=== PATIENT | female | born 1975 | race Caucasian/White ===

== ENCOUNTER → 2018-06-19 13:39 | Outpatient (CLI) | payer OTHER, SELFPAY | PROVIDERS: Visit Provider Physician Assistant | DX: L02.91 Cutaneous abscess, unspecified (principal) | CPT/HCPCS: 87070; 87075; 87205 ==

== ENCOUNTER 2024-07-12 14:21 | Emergency (ER) | payer OTHER, SELFPAY ==
[2024-07-12 14:28] VITALS: BP 147/91; PULSE 97; RESP 17; TEMP 36.3; O2SAT 96; BMI 46.8
--- NOTE | 2024-07-12 14:44 | ED_ITS ---
HPI - Wound/Laceration <Jaelyn Guerrero PA-C - Last Filed: 07/12/24 19:14> General Chief Complaint: Wound/Laceration Stated Complaint: abcess in vaginal area Time Seen by Provider: 07/12/24 14:41 Source: patient Mode of arrival: Ambulatory History of Present Illness HPI narrative: Ms. Turner is a pleasant 48-year-old female with a past medical history of insulin-dependent type 2 diabetes, PCOS who presents to the emergency department for a skin abscess in her right inguinal fold x8 days. Patient reports she first noticed this ?cyst? in the crease between her vagina and thigh 8 days ago but reports it may have been there for at least 3 weeks. States that this started spontaneously draining today and it is very foul smelling. States she experienced something similar in her left thigh crease about 3 years ago and on her shoulder blade as well. She denies fevers, chills, nausea, vomiting, abdominal pain, dysuria, abnormal vaginal discharge or bleeding. Reports that she checks her blood glucose twice daily and that it was elevated in the 300s this morning because she ate late last night but that it is normally in the 200s. Related Data Home Medications Medication Instructions Recorded Confirmed alpha lipoic acid 200 mg capsule mg PO 06/19/18 06/19/18 arginine (L-arginine) 500 mg mg PO 06/19/18 06/19/18 capsule cinnamon bark 500 mg capsule 1,000 mg PO DAILY 06/19/18 06/19/18 (Cinnamon) coenzyme Q10 100 mg capsule 100 mg PO DAILY 06/19/18 06/19/18 glimepiride 4 mg tablet 4 mg PO QAM 06/19/18 06/19/18 glutamine 500 mg tablet 500 mg PO DAILY 06/19/18 06/19/18 (L-Glutamine) insulin lispro [Humalog U-100 SUBCUT 06/19/18 06/19/18 Insulin] krill oil 500 mg capsule 1,000 mg PO DAILY 06/19/18 06/19/18 lactobacillus combination no.8 PO 06/19/18 06/19/18 [Adult Probiotic] levocarnitine 500 mg tablet 500 mg PO BID 06/19/18 06/19/18 (L-Carnitine) metformin 500 mg tablet 500 mg PO BID 06/19/18 06/19/18 milk thistle 175 mg tablet 350 mg PO BID 06/19/18 06/19/18 omeprazole 20 mg capsule,delayed 20 mg PO DAILY 06/19/18 06/19/18 release sennosides 8.6 mg tablet (senna) 8.6 mg PO TID PRN 06/19/18 06/19/18 tumeric curcumin PO 06/19/18 06/19/18 Previous Rx's Medication Instructions Recorded chlorhexidine gluconate 4 % 1 applic topical DAILY 7 days #946 07/12/24 topical liquid (Hibiclens) mL doxycycline hyclate 100 mg capsule 100 mg PO BID 7 days #14 caps 07/12/24 Allergies Allergy/AdvReac Type Severity Reaction Status Date / Time tomato Allergy Intermediate blisters Verified 07/12/24 14:27 on tongue from raw tomatoes [id number] Reductase Allergy Dizziness Verified 07/12/24 14:28 Inhibitor Review of Systems <Jaelyn Guerrero PA-C - Last Filed: 07/12/24 19:14> Review of Systems ROS Unobtainable: All systems reviewed & are unremarkable except as noted in HPI and below Patient History <Jaelyn Guerrero PA-C - Last Filed: 07/12/24 19:14> Social History Smoking Status: Former smoker Smoking Status: Former smoker Substance Use Type: does not use Exam <Jaelyn Guerrero PA-C - Last Filed: 07/12/24 19:14> Narrative Exam Narrative: GENERAL: 48 year old obese patient appears stated age. In no acute distress. HEAD: Atraumatic. Normocephalic. EYES: Extraocular motions intact. No scleral icterus. No injection or drainage. ENT: Nose without bleeding, purulent drainage. Airway patent. NECK: Trachea midline. Non tender CARDIOVASCULAR: Regular rate and rhythm. RESPIRATORY: No respiratory distress. Speaking in clear full sentences. GASTROINTESTINAL: Right inguinal fold with approximately 1 cm fluctuant, actively draining abscess with 4 cm surrounding erythema and induration. Tender to palpation. Foul-smelling, copious purulent drainage. Erythema, induration, abscess does not extend onto the mons pubis or near the vaginal introitus. Abdomen soft, non-tender, nondistended. EXTREMITIES: No edema or joint tenderness. BACK: Nontender without deformity or crepitance. No flank tenderness. NEURO: AOx3. SKIN: Right inguinal fold abscess as described above. Initial Vital Signs Initial Vital Signs: Vital Signs Temperature 97.3 F L 07/12/24 14:28 Pulse Rate 97 H 07/12/24 14:28 Respiratory Rate 17 07/12/24 14:28 Blood Pressure 147/91 H 07/12/24 14:28 Pulse Oximetry 96 07/12/24 14:28 Oxygen Delivery Method Room Air 07/12/24 14:28 <DO Fatemeh Stanford Last Filed: 07/13/24 09:55> Initial Vital Signs Initial Vital Signs: Vital Signs Temperature 97.3 F L 07/12/24 14:28 Pulse Rate 97 H 07/12/24 14:28 Respiratory Rate 17 07/12/24 14:28 Blood Pressure 147/91 H 07/12/24 14:28 Pulse Oximetry 96 07/12/24 14:28 Oxygen Delivery Method Room Air 07/12/24 14:28 Course <Jaelyn Guerrero PA-C - Last Filed: 07/12/24 19:14> Orders Ordered: Discontinued Medications Acetaminophen (Acetaminophen 325 Mg Tablet) 975 mg PO NOW ONE Stop: 07/12/24 14:53 Last Admin: 07/12/24 15:21 Dose: 975 mg Documented By: RONNELL Doxycycline Hyclate (Doxycycline Hyclate 100 Mg Tablet) 100 mg PO NOW ONE Stop: 07/12/24 18:25 Last Admin: 07/12/24 18:41 Dose: 100 mg Documented By: RONNELL Insulin Human Lispro (Insulin Lispro 100 Unit/Ml 3ml Vial) 10 unit SUBCUT AC [facility] [place] Last Admin: 07/12/24 17:20 Dose: 10 unit Documented By: RONNELL Co-signed By: BRANDT Ketorolac Tromethamine (Ketorolac 30 Mg/Ml Vial) 15 mg IV NOW ONE Stop: 07/12/24 14:53 Last Admin: 07/12/24 15:20 Dose: 15 mg Documented By: RONNELL Vital Signs Vital signs: Vital Signs - 8 hr 07/12/24 14:28 07/12/24 15:50 Temperature 97.3 F L Pulse Rate 97 H 78 Respiratory Rate 17 Blood Pressure 147/91 H 128/65 Pulse Oximetry 96 96 Oxygen Delivery Method Room Air Room Air <DO Fatemeh Stanford Last Filed: 07/13/24 09:55> Orders Ordered: Discontinued Medications Acetaminophen (Acetaminophen 325 Mg Tablet) 975 mg PO NOW ONE Stop: 07/12/24 14:53 Last Admin: 07/12/24 15:21 Dose: 975 mg Documented By: RONNELL Doxycycline Hyclate (Doxycycline Hyclate 100 Mg Tablet) 100 mg PO NOW ONE Stop: 07/12/24 18:25 Last Admin: 07/12/24 18:41 Dose: 100 mg Documented By: RONNELL Insulin Human Lispro (Insulin Lispro 100 Unit/Ml 3ml Vial) 10 unit SUBCUT AC [facility] [place] Last Admin: 07/12/24 17:20 Dose: 10 unit Documented By: RONNELL Co-signed By: BRANDT Ketorolac Tromethamine (Ketorolac 30 Mg/Ml Vial) 15 mg IV NOW ONE Stop: 07/12/24 14:53 Last Admin: 07/12/24 15:20 Dose: 15 mg Documented By: RONNELL Vital Signs Vital signs: Vital Signs - 8 hr 07/12/24 14:28 07/12/24 15:50 Temperature 97.3 F L Pulse Rate 97 H 78 Respiratory Rate 17 Blood Pressure 147/91 H 128/65 Pulse Oximetry 96 96 Oxygen Delivery Method Room Air Room Air MDM - Wound/Laceration <Jaelyn Guerrero PA-C - Last Filed: 07/12/24 19:14> Lab Data Lab results narrative: Calculated anion gap 9.0. Calculated corrected sodium 137. 07/12/24 15:07 07/12/24 15:07 Labs: Lab Results 07/12/24 07/12/24 Range/Units 15:07 17:15 WBC 9.1 (4.5-11.0) X10^3/uL RBC 5.05 (4.0-5.2) X10^6/uL Hgb 14.7 (12.0-16.0) g/dL Hct 43.5 (36-46) % MCV 86.1 (80-100) fL MCH 29.1 (26-34) PG MCHC 33.8 (30-36) % RDW 13.3 (11.6-14.8) % Plt Count 262 (150-400) X10^3/uL Neut % (Auto) 63.7 (50-75) % Lymph % (Auto) 28.2 (25-40) % Cache % (Auto) 6.6 (3-14) % Eos % (Auto) 0.9 L (2-4) % Baso % (Auto) 0.6 (0-2) % Neut # (Auto) 5800 (8114-9788) /uL Lymph # (Auto) 2600 (0312-4288) /uL Cache # (Auto) 600 (0-900) /uL Eos # (Auto) 100 (0-450) /uL Baso # (Auto) 100 (0-100) /uL Sodium 133 L (137-145) mmol/L Potassium 4.2 (3.4-5.1) mmol/L Chloride 101 (98-107) mmol/L Carbon Dioxide 23 (22-32) mmol/L BUN 13 (7-17) mg/dL Creatinine 0.58 (0.52-1.04) mg/dL Estimated GFR > 60 (>60) mL/min BUN/Creatinine Ratio 22.4 H (6-22) Glucose 379 H (70-100) mg/dL Lactate 2.4 H 1.7 (0.7-2.1) mmol/L Calcium 10.5 H (8.4-10.2) mg/dL Total Bilirubin 0.6 (0.2-1.3) mg/dL AST 31 (14-36) IU/L ALT 43 H (<35) IU/L Alkaline Phosphatase 124 (38-126) U/L Total Protein 7.4 (6.3-8.2) g/dL Albumin 4.1 (3.5-5.0) g/dL Globulin 3.3 (1.7-4.1) g/dL Albumin/Globulin Ratio 1.2 (1.0-2.8) [facility] Narrative Medical decision making narrative: 48-year-old female with a past medical history of insulin-dependent diabetes presents to the emergency department for a right inguinal fold abscess x8 days. Differential diagnosis includes but is not limited to abscess, cellulitis, deep space abscess, Belén's gangrene, UTI, Bartholin cyst, etc. On exam the patient is in no acute distress, nontoxic appearing, afebrile. She has an abscess in the crease of her right thigh/right inguinal fold with surrounding cellulitis and it is actively draining foul-smelling purulence. Due to her history of diabetes and the nature of the abscess, we will obtain CT of the pelvis with contrast in addition to basic labs. We will treat pain with Tylenol and Toradol, patient declines narcotics. We will obtain wound culture of purulence. Depending on CT results may proceed with I&D if fluid collection identified. Workup reveals normal WBC at 9.1, hemoglobin 14.7. Sodium 133 however with correction for hyperglycemia, 137. Blood glucose is 379. BUN 13, creatinine 0.58. Calculated anion gap is within normal limits. Initial lactic 2.4, down to 1.[address] pelvis with contrast reveals significant soft tissue cellulitis seen involving the right inguinal crease, yet without soft tissue gas or soft tissue abscess ?. Patient was encouraged oral fluids for elevated lactic which came down into normal range. Lab work, vitals, and exam not consistent with sepsis. She was given 10 subQ units of Humalog for her hyperglycemia, she does have all of the supplies at home needed to manage her diabetes and sliding scale insulin. Workup not consistent with DKA or diabetic emergency. I&D not warranted for right inguinal abscess as no fluid collection seen on CT // appears to have drained spontaneously during my initial examination. I cleansed the area and applied large dressing. Will treat patient right inguinal cellulitis/abscess with doxycycline 100 mg b.i.d. x7 days. Hibiclens wash ordered. Wound culture pending and 1st dose of antibiotic given in the emergency department. I recommended Tylenol/ibuprofen if needed for pain. We extensively discussed wound care and warm compresses. Discussed very strict ED return precautions. Also discussed the importance of controlling her blood glucose while being treated for an infection. Encouraged increase hydration. Patient's symptoms improved during her ED stay, all questions answered, advised prompt follow up with PCP and return to ER for any new or worsening symptoms. Patient is stable for discharge at this time. <Anne Brantley, - Last Filed: 07/13/24 09:55> Lab Data Labs: Lab Results 07/12/24 07/12/24 Range/Units 15:07 17:15 WBC 9.1 (4.5-11.0) X10^3/uL RBC 5.05 (4.0-5.2) X10^6/uL Hgb 14.7 (12.0-16.0) g/dL Hct 43.5 (36-46) % MCV 86.1 (80-100) fL MCH 29.1 (26-34) PG MCHC 33.8 (30-36) % RDW 13.3 (11.6-14.8) % Plt Count 262 (150-400) X10^3/uL Neut % (Auto) 63.7 (50-75) % Lymph % (Auto) 28.2 (25-40) % Cache % (Auto) 6.6 (3-14) % Eos % (Auto) 0.9 L (2-4) % Baso % (Auto) 0.6 (0-2) % Neut # (Auto) 5800 (2288-4155) /uL Lymph # (Auto) 2600 (9011-4859) /uL Cache # (Auto) 600 (0-900) /uL Eos # (Auto) 100 (0-450) /uL Baso # (Auto) 100 (0-100) /uL Sodium 133 L (137-145) mmol/L Potassium 4.2 (3.4-5.1) mmol/L Chloride 101 (98-107) mmol/L Carbon Dioxide 23 (22-32) mmol/L BUN 13 (7-17) mg/dL Creatinine 0.58 (0.52-1.04) mg/dL Estimated GFR > 60 (>60) mL/min BUN/Creatinine Ratio 22.4 H (6-22) Glucose 379 H (70-100) mg/dL Lactate 2.4 H 1.7 (0.7-2.1) mmol/L Calcium 10.5 H (8.4-10.2) mg/dL Total Bilirubin 0.6 (0.2-1.3) mg/dL AST 31 (14-36) IU/L ALT 43 H (<35) IU/L Alkaline Phosphatase 124 (38-126) U/L Total Protein 7.4 (6.3-8.2) g/dL Albumin 4.1 (3.5-5.0) g/dL Globulin 3.3 (1.7-4.1) g/dL Albumin/Globulin Ratio 1.2 (1.0-2.8) Discharge Plan Departure Patient Disposition: Home Clinical Impression: Abscess, Cellulitis, pelvic, Acute hyperglycemia Instructions: DI for Skin Abscess Activity Restrictions/Additional Instructions: Today we are treating you for a skin infection and abscess in the crease of your right thigh. Please complete the full 7 day course of oral antibiotics and use the prescribed Hibiclens wash when you shower. (if the Hibiclens is too expensive, it can be purchased [id number]). Please keep the wound clean, dry, covered with gauze at all times. You may use warm compress twice daily to help with drainage of the wound. Return to the emergency department immediately if you develop any new or worsening symptoms including increased redness, pain, swelling of the wound; fevers or chills; red streaking up the abdomen or down the leg, or any other concerns. Follow-up with a primary care doctor within the next 2-3 days for repeat evaluation. Prescriptions: New doxycycline hyclate 100 mg capsule 100 mg PO BID 7 Days Qty: 14 0RF chlorhexidine gluconate [Hibiclens] 4 % liquid 1 applic topical DAILY 7 Days Qty: 946 0RF No Action metformin 500 mg tablet 500 mg PO BID sennosides [senna] 8.6 mg tablet 8.6 mg PO TID PRN milk thistle 175 mg tablet 350 mg PO BID levocarnitine [L-Carnitine] 500 mg tablet 500 mg PO BID glimepiride 4 mg tablet 4 mg PO QAM omeprazole 20 mg capsule,delayed release(DR/EC) 20 mg PO DAILY arginine (L-arginine) 500 mg capsule PO glutamine [L-Glutamine] 500 mg tablet 500 mg PO DAILY coenzyme Q10 100 mg capsule 100 mg PO DAILY cinnamon bark [Cinnamon] 500 mg capsule 1,000 mg PO DAILY alpha lipoic acid 200 mg capsule PO krill oil 500 mg capsule 1,000 mg PO DAILY insulin lispro SUBCUT lactobacillus combination no.8 PO tumeric curcumin PO Referrals: Annamaria Hall MD [Primary Care Provider] - Stand Alone Forms: Patient Portal/API/Survey ED Sign-out <Anne Brantley DO - Last Filed: 07/13/24 09:55> Cosign ED Attending Cosignature Attestation: I was available for consultation.
--- NOTE | 2024-07-12 14:52 | DI.CT.S_ITS ---
PROCEDURE: CT PELVIS W CON INDICATIONS: R inguinal fold abscess TECHNIQUE: After the administration of intravenous contrast, 5 mm thick sections acquired from the iliac crests to the symphysis. 5 mm coronal and sagittal reformats were acquired. For radiation dose reduction, the following was used: automated exposure control, adjustment of mA and/or kV according to patient size. COMPARISON: None. FINDINGS: Image quality: This study is limited by body habitus. PELVIS: Peritoneum and Bowel: Bowel loops demonstrate normal wall thickness and caliber. No free fluid or air. Pelvic Organs: No pelvic mass. Bladder: Normal wall thickness, accounting for underdistension. No perivesicular fat stranding. Pelvic Nodes: Borderline prominent bilateral inguinal lymph nodes are seen, without benjy enlargement. Miscellaneous: No inguinal hernias are seen. Focal inflammatory change with skin thickening can be seen within the left inguinal fold. No soft tissue gas or soft tissue fluid collection can be seen. There are areas of skin thickening seen involving the pannus on both sides, also without soft tissue gas or fluid collections. Bones: No aggressive osseous abnormality. Focal L3-L4 degenerative change is seen. IMPRESSION: Significant soft tissue cellulitis seen involving the right inguinal crease, yet without soft tissue gas or soft tissue abscess. Dictated by: Joe Salamanca M.D. on 07/12/2024 at 15:55 Approved by: Joe Salamanca M.D. on 07/12/2024 at 15:57
[2024-07-12 15:18] LABS: Add Manual Diff / Slide Review NO; Basophils Absolute Auto 100 /uL (0-100); Basophils Percent Auto 0.6 % (0-2); Eosinophils Absolute Auto 100 /uL (0-450); Eosinophils Percent Auto 0.9 % (2-4); Hematocrit 43.5 % (36-46); Hemoglobin 14.7 g/dL (12.0-16.0); Lymphocytes Absolute Auto 2600 /uL (1100-4500); Lymphocytes Percent Auto 28.2 % (25-40); Mean Corpuscular HGB Conc 33.8 % (30-36); Mean Corpuscular Hemoglobin 29.1 PG (26-34); Mean Corpuscular Volume 86.1 fL (80-100); Monocytes Absolute Auto 600 /uL (0-900); Monocytes Percent Auto 6.6 % (3-14); Neutrophils Absolute Auto 5800 /uL (1500-7000); Neutrophils Percent Auto 63.7 % (50-75); Platelet Count 262 X10^3/uL (150-400); Red Blood Cell Count 5.05 X10^6/uL (4.0-5.2); Red Cell Distribution Width 13.3 % (11.6-14.8); White Blood Cell Count 9.1 X10^3/uL (4.5-11.0)
[2024-07-12] MEDS: KETOROLAC 30 MG/ML VIAL 15 MG IV (15:20)
[2024-07-12] MEDS: ACETAMINOPHEN 325 MG TABLET 975 MG PO (15:21)
[2024-07-12 15:35] LABS: Lactate (Lactic Acid) 2.4 mmol/L (0.7-2.1)
[2024-07-12 15:36] LABS: Alanine Aminotransferase 43 IU/L (<35); Albumin 4.1 g/dL (3.5-5.0); Albumin Globulin Ratio 1.2 (1.0-2.8); Alkaline Phosphatase 124 U/L (38-126); Aspartate Aminotransferase 31 IU/L (14-36); BUN Creatinine Ratio 22.4 (6-22); Bilirubin Total 0.6 mg/dL (0.2-1.3); Blood Urea Nitrogen 13 mg/dL (7-17); Calcium 10.5 mg/dL (8.4-10.2); Carbon Dioxide 23 mmol/L (22-32); Chloride 101 mmol/L (98-107); Estimated Glomerular Filt Rate > 60 mL/min (>60); Globulin 3.3 g/dL (1.7-4.1); Glucose 379 mg/dL (70-100); HEMOLYSIS < 15 (0-50); Potassium 4.2 mmol/L (3.4-5.1); Sodium 133 mmol/L (137-145); Total Protein 7.4 g/dL (6.3-8.2)
[2024-07-12 15:50] VITALS: BP 128/65; PULSE 78; O2SAT 96
[2024-07-12 16:51] LABS: Reflexed Lactate in 2 Hours Y
[2024-07-12] MEDS: INSULIN LISPRO 100 UNIT/ML 3ML VIAL 10 UNIT SUBCUT (17:20)
[2024-07-12 17:30] LABS: Lactate 2HR (Lactic Acid Rflx) 1.7 mmol/L (0.7-2.1)
[2024-07-12] MEDS: DOXYCYCLINE HYCLATE 100 MG TABLET PO (18:41)
[2024-07-12 19:11] VITALS: BP 139/75; PULSE 82; RESP 16; O2SAT 97
== END 2024-07-12 19:11 | disposition home or self-care (01) ==
PROVIDERS: Emergency Provider Physician Assistant; PCP Internal Medicine
DX: L02.214 Cutaneous abscess of groin (principal); L03.314 Cellulitis of groin; E11.65 Type 2 diabetes mellitus with hyperglycemia; Z79.4 Long term (current) use of insulin
CPT/HCPCS: 36415; 72193; 80053; 81003; 81025; 82962; 83605; 85025; 87070; 87075; 87077; 87147; 87205; 96372; 96374; 99284; J1815; J1885; Q9967

== ENCOUNTER 2025-01-04 12:11 | Emergency (ER) | payer OTHER, SELFPAY ==
[2025-01-04 12:23] VITALS: BP 166/83; PULSE 100; RESP 22; TEMP 36.6; O2SAT 95; BMI 45.8
[2025-01-04 13:24] LABS: Influenza A - CEPHEID Flu A POSITIVE (NEGATIVE); Influenza B - CEPHEID Flu B NEGATIVE (NEGATIVE); Respiratory Syncytial Virus Negative (Negative)
[2025-01-04 13:31] LABS: COVID-19 CEPHEID 4-PLEX PCR Negative (Negative)
--- NOTE | 2025-01-04 14:02 | DI.RAD.S_ITS ---
PROCEDURE: XR CHEST 2V INDICATIONS: cough fever sob Flu TECHNIQUE: 2 views of the chest were acquired. COMPARISON: None. FINDINGS: Surgical changes and devices: None. Lungs and pleura: Scattered nonspecific bilateral atelectasis and or infiltrate. Pleural space clear Mediastinum: Mediastinal contours are normal. Heart size is normal. Bones and chest wall: No suspicious bony abnormalities. Soft tissues appear unremarkable. IMPRESSION: Scattered non-specific bilateral atelectasis and or infiltrate Approved by: Jaycob Stacy M.D. on 01/04/2025 at 14:14
[2025-01-04 16:44] VITALS: BP 132/94; PULSE 94; RESP 18; O2SAT 95
--- NOTE | 2025-01-04 17:14 | ED.URI ---
HPI - URI/Sore Throat <Jaelyn Guerrero PA-C - Last Filed: 01/04/25 17:23> General Chief Complaint: Upper Respiratory Symptoms Stated Complaint: cant breathe, thinks pneumonia, sick t-14 Time Seen by Provider: 01/04/25 14:02 Source: patient Mode of arrival: Ambulatory History of Present Illness HPI Narrative: Ms. Turner is a pleasant 49-year-old female with a past medical history of diabetes, PCOS who presents to the emergency department for upper respiratory infection symptoms x 14 days. Patient states when her symptoms 1st started she was feeling dizzy and had a fever for 2 days and was extremely fatigued. Her tested positive for influenza A. Over the course of the last 2 weeks, she has continued to have a wet cough. Today she noticed that she was feeling slightly more short of breath and was concerned that she might have pneumonia. Denies chest pain, abdominal pain, nausea, vomiting, diarrhea, dysuria. Nonsmoker. She took Mucinex this morning. Related Data Home Medications Medication Instructions Recorded Confirmed alpha lipoic acid 200 mg capsule mg PO 06/19/18 06/19/18 arginine (L-arginine) 500 mg mg PO 06/19/18 06/19/18 capsule cinnamon bark 500 mg capsule 1,000 mg PO DAILY 06/19/18 06/19/18 (Cinnamon) coenzyme Q10 100 mg capsule 100 mg PO DAILY 06/19/18 06/19/18 glimepiride 4 mg tablet 4 mg PO QAM 06/19/18 06/19/18 glutamine 500 mg tablet 500 mg PO DAILY 06/19/18 06/19/18 (L-Glutamine) insulin lispro [Humalog U-100 SUBCUT 06/19/18 06/19/18 Insulin] krill oil 500 mg capsule 1,000 mg PO DAILY 06/19/18 06/19/18 lactobacillus combination no.8 PO 06/19/18 06/19/18 [Adult Probiotic] levocarnitine 500 mg tablet 500 mg PO BID 06/19/18 06/19/18 (L-Carnitine) metformin 500 mg tablet 500 mg PO BID 06/19/18 06/19/18 milk thistle 175 mg tablet 350 mg PO BID 06/19/18 06/19/18 omeprazole 20 mg capsule,delayed 20 mg PO DAILY 06/19/18 06/19/18 release sennosides 8.6 mg tablet (senna) 8.6 mg PO TID PRN 06/19/18 06/19/18 tumeric curcumin PO 06/19/18 06/19/18 Previous Rx's Medication Instructions Recorded amoxicillin 875 mg-potassium 1 tab PO Q12H 5 days #10 tabs 01/04/25 clavulanate 125 mg tablet benzonatate 200 mg capsule 200 mg PO BID-TID PRN cough #20 01/04/25 caps doxycycline hyclate 100 mg capsule 100 mg PO BID 5 days #10 caps 01/04/25 Allergies Allergy/AdvReac Type Severity Reaction Status Date / Time tomato Allergy Intermediate blisters Verified 07/12/24 14:27 on tongue from raw tomatoes [id number] Reductase Allergy Dizziness Verified 07/12/24 14:28 Inhibitor Review of Systems <Jaelyn Guerrero PA-C - Last Filed: 01/04/25 17:23> Review of Systems ROS Unobtainable: All systems reviewed & are unremarkable except as noted in HPI and below Patient History <Jaelyn Guerrero PA-C - Last Filed: 01/04/25 17:23> Social History Smoking Status: Never smoker Smoking Status: Never smoker Exam <Jaelyn Guerrero PA-C - Last Filed: 01/04/25 17:23> Narrative Exam Narrative: GENERAL: 49 year old patient appears stated age. Obese patient, in no acute distress. HEAD: Atraumatic. Normocephalic. EYES: Extraocular motions intact. No scleral icterus. No injection or drainage. ENT: Normal right ear canal and TM, left TM white and scarred appearing with no erythema bulging or drainage, normal canal. No mastoid tenderness bilaterally. Nose without bleeding, purulent drainage. Throat without erythema, tonsillar hypertrophy or exudate. Airway patent. NECK: Trachea midline. Cervical ROM intact. CARDIOVASCULAR: Regular rate and rhythm. RESPIRATORY: ?Nonlabored respirations. ?Speaking in clear, full sentences. ?Clear to auscultation. Diminished breath sounds in bilateral lower lobes, no wheezes or rales. NEURO: AOx3. ?Clear speech. ?Moves all 4 extremities appropriately. SKIN: No rash or erythema of visible areas Initial Vital Signs Initial Vital Signs: Vital Signs Temperature 98 F 01/04/25 12:23 Pulse Rate 100 H 01/04/25 12:23 Respiratory Rate 22 01/04/25 12:23 Blood Pressure 166/83 H 01/04/25 12:23 Pulse Oximetry 95 01/04/25 12:23 Oxygen Delivery Method Room Air 01/04/25 12:23 <Carrie Snyder DO - Last Filed: 01/04/25 18:39> Initial Vital Signs Initial Vital Signs: Vital Signs Temperature 98 F 01/04/25 12:23 Pulse Rate 100 H 01/04/25 12:23 Respiratory Rate 22 01/04/25 12:23 Blood Pressure 166/83 H 01/04/25 12:23 Pulse Oximetry 95 01/04/25 12:23 Oxygen Delivery Method Room Air 01/04/25 12:23 Course <Jaelyn Guerrero PA-C - Last Filed: 01/04/25 17:23> Orders Ordered: ED Orders 01/04/25 12:28 Covid-19 + FLU A/B + RSV - PCR Stat 01/04/25 14:02 XR chest 2V Stat Discontinued Medications Acetaminophen (Acetaminophen 325 Mg Tablet) 975 mg PO NOW ONE Stop: 01/04/25 17:05 Last Admin: 01/04/25 17:23 Dose: 975 mg Documented By: NORTH Amoxicillin/Clavulanate Potassium (Amoxicillin/Clav 875/125 Mg) 1 tab PO NOW ONE Stop: 01/04/25 17:05 Last Admin: 01/04/25 17:24 Dose: 1 tab Documented By: NORTH Doxycycline Hyclate (Doxycycline Hyclate 100 Mg Tablet) 100 mg PO NOW ONE Stop: 01/04/25 17:05 Last Admin: 01/04/25 17:24 Dose: 100 mg Documented By: NORTH Ibuprofen (Ibuprofen 400 Mg Tablet) 400 mg PO NOW ONE Stop: 01/04/25 17:05 Last Admin: 01/04/25 17:24 Dose: 400 mg Documented By: NORTH Vital Signs Vital signs: Vital Signs - 8 hr 01/04/25 12:23 01/04/25 16:44 01/04/25 17:31 Temperature 98 F 98.2 F Pulse Rate 100 H 94 H Respiratory Rate 22 18 Blood Pressure 166/83 H 132/94 H Pulse Oximetry 95 95 Oxygen Delivery Method Room Air Room Air <Carrie Snyder DO - Last Filed: 01/04/25 18:39> Orders Ordered: ED Orders 01/04/25 12:28 Covid-19 + FLU A/B + RSV - PCR Stat 01/04/25 14:02 XR chest 2V Stat Discontinued Medications Acetaminophen (Acetaminophen 325 Mg Tablet) 975 mg PO NOW ONE Stop: 01/04/25 17:05 Last Admin: 01/04/25 17:23 Dose: 975 mg Documented By: BS Amoxicillin/Clavulanate Potassium (Amoxicillin/Clav 875/125 Mg) 1 tab PO NOW ONE Stop: 01/04/25 17:05 Last Admin: 01/04/25 17:24 Dose: 1 tab Documented By: NOR[facility] Doxycycline Hyclate (Doxycycline Hyclate 100 Mg Tablet) 100 mg PO NOW ONE Stop: 01/04/25 17:05 Last Admin: 01/04/25 17:24 Dose: 100 mg Documented By: NORTH Ibuprofen (Ibuprofen 400 Mg Tablet) 400 mg PO NOW ONE Stop: 01/04/25 17:05 Last Admin: 01/04/25 17:24 Dose: 400 mg Documented By: NORTH Vital Signs Vital signs: Vital Signs - 8 hr 01/04/25 12:23 01/04/25 16:44 01/04/25 17:31 Temperature 98 F 98.2 F Pulse Rate 100 H 94 H Respiratory Rate 22 18 Blood Pressure 166/83 H 132/94 H Pulse Oximetry 95 95 Oxygen Delivery Method Room Air Room Air MDM - URI/Sore Throat <Jaelyn Guerrero PA-C - Last Filed: 01/04/25 17:23> Medical Records Attestation: I reviewed the patient's medical records. Lab Data Labs: Lab Results 01/04/25 Range/Units 12:28 SARS-CoV-2 (PCR) Negative (Negative) Influenza A (RT-PCR) Flu a positive H (NEGATIVE) Influenza B (RT-PCR) Flu b negative (NEGATIVE) RSV (PCR) Negative (Negative) Imaging Data Chest x-ray: Radiologist's Impression: PROCEDURE: XR CHEST 2V INDICATIONS: cough fever sob Flu TECHNIQUE: 2 views of the chest were acquired. COMPARISON: None. FINDINGS: Surgical changes and devices: None. Lungs and pleura: Scattered nonspecific bilateral atelectasis and or infiltrate. Pleural space clear Mediastinum: Mediastinal contours are normal. Heart size is normal. Bones and chest wall: No suspicious bony abnormalities. Soft tissues appear unremarkable. IMPRESSION: Scattered non-specific bilateral atelectasis and or infiltrate MDM Narrative Medical decision making narrative: 49-year-old female with a past medical history of diabetes, PCOS who presents to the emergency department for upper respiratory infection symptoms x 14 days. Differential diagnosis includes but isn't limited to viral syndrome, pneumonia, bronchitis, etc. On exam patient is in no acute distress, nontoxic appearing heart rate and blood pressure initially slightly elevated in triage however they have come down into normal range since waiting. Viral swab and chest x-ray obtained in triage. Patient has somewhat decreased breath sounds and bilateral lower lobes otherwise no abnormal lung sounds or wheezing. Viral swab positive for influenza a, chest x-ray reveals scattered nonspecific bilateral atelectasis and or infiltrate. Given patient's duration of symptoms, we will treat as community-acquired pneumonia with Augmentin and doxycycline. We will also give dose of ibuprofen and acetaminophen in the emergency department, benzonatate sent to her pharmacy of choice for cough. Discussed strict ED return precautions, supportive care with increase hydration, antipyretics, rest, incentive spirometer was explained and provided to patient. She verbalized understanding of all information is agreeable with the plan. She is stable for discharge home. <Carrie Snyder, - Last Filed: 01/04/25 18:39> Lab Data Labs: Lab Results 01/04/25 Range/Units 12:28 SARS-CoV-2 (PCR) Negative (Negative) Influenza A (RT-PCR) Flu a positive H (NEGATIVE) Influenza B (RT-PCR) Flu b negative (NEGATIVE) RSV (PCR) Negative (Negative) Discharge Plan Departure Patient Disposition: Home Clinical Impression: Influenza A Pneumonia Qualifiers: Pneumonia type: due to influenza A virus Qualified Code(s): J10.00 - Influenza due to other identified influenza virus with unspecified type of pneumonia Instructions: DI for Pneumonia -- Adult, DI for Influenza -- Adult Activity Restrictions/Additional Instructions: Dear Ms. Turner, Thank you for coming to the emergency department. Today you tested positive for influenza a and your chest x-ray revealed pneumonia which is a lung infection. You have been prescribed 2 antibiotics that you need to complete the full course of. I have also prescribed you benzonatate which is a cough medicine that you can use if needed for cough. I do encourage that you take frequent deep breaths and use the incentive spirometer you were provided with. Please follow up with your primary care doctor, I recommend you have a repeat chest x-ray after your symptoms have resolved with your primary. Please take Ibuprofen (Motrin/Advil) or Acetaminophen (Tylenol) for pain. These are available over the counter. You may take Ibuprofen 600 mg every 8 hours with food for pain. You may also take Acetaminophen 650 mg every 4-6 hours for pain. Do not exceed 3000 mg of Tylenol a day as this can cause liver damage. Do not drink alcohol with either of these medications. Return to the emergency department if you develop chest pain, difficulty breathing, worsening symptoms or any other concerns. Please follow up with your primary care doctor within the next 2-3 days for ER follow-up. (If you do not have a PCP you can call [phone]. ?to schedule an appointment with an [facility] Primary Care Provider) IF YOU DEVELOP ANY NEW OR WORSENING SYMPTOMS, RETURN TO THE ER! Please read the attached instructions, they highlight more specific treatments and interventions for you at home. Thank you for letting me participate in your care, Jaelyn Guerrero PA-C Prescriptions: New amoxicillin-pot clavulanate 875-125 mg tablet 1 tab PO Q12H 5 Days Qty: 10 0RF doxycycline hyclate 100 mg capsule 100 mg PO BID 5 Days Qty: 10 0RF benzonatate 200 mg capsule 200 mg PO BID-TID PRN (Reason: cough) Qty: 20 0RF Rx Instructions: keep away from children. No Action metformin 500 mg tablet 500 mg PO BID sennosides [senna] 8.6 mg tablet 8.6 mg PO TID PRN milk thistle 175 mg tablet 350 mg PO BID levocarnitine [L-Carnitine] 500 mg tablet 500 mg PO BID glimepiride 4 mg tablet 4 mg PO QAM omeprazole 20 mg capsule,delayed release(DR/EC) 20 mg PO DAILY arginine (L-arginine) 500 mg capsule PO glutamine [L-Glutamine] 500 mg tablet 500 mg PO DAILY coenzyme Q10 100 mg capsule 100 mg PO DAILY cinnamon bark [Cinnamon] 500 mg capsule 1,000 mg PO DAILY alpha lipoic acid 200 mg capsule PO krill oil 500 mg capsule 1,000 mg PO DAILY insulin lispro SUBCUT lactobacillus combination no.8 PO tumeric curcumin PO Referrals: Annamaria Hall MD [Primary Care Provider] - Stand Alone Forms: Patient Portal/API/Survey ED Sign-out <Carrie Snyder DO - Last Filed: 01/04/25 18:39> Cosign ED Attending Cosignature Attestation: I was immediately available in the department for consultation.
[2025-01-04] MEDS: ACETAMINOPHEN 325 MG TABLET 975 MG PO (17:23)
[2025-01-04] MEDS: DOXYCYCLINE HYCLATE 100 MG TABLET PO (17:24)
[2025-01-04] MEDS: IBUPROFEN 400 MG TABLET PO (17:24)
[2025-01-04] MEDS: AMOXICILLIN/CLAV 875/125 MG 1 TAB PO (17:24)
[2025-01-04 17:31] VITALS: TEMP 36.8
== END 2025-01-04 17:31 | disposition home or self-care (01) ==
PROVIDERS: Emergency Provider Physician Assistant; PCP Internal Medicine
DX: J10.00 Influenza due to other identified influenza virus with unspecified type of pneumonia (principal); R50.9 Fever, unspecified; R06.02 Shortness of breath
CPT/HCPCS: 0241U; 71046; 99283